=== PATIENT | male | born 1960 | race Two or more races ===

== ENCOUNTER 2017-02-23 09:01 | Day surgery (SDC) | payer OTHER ==
[2017-02-20 14:51] VITALS: BMI 24.6
[~2017-02-23] VITALS: Ht 160 cm; Wt 72.0 kg
[2017-02-23] VITALS (16 sets, daily range): BP systolic 98–144; BP diastolic 60–78; PULSE 67–82; RESP 10–20; Ht 160 cm; Wt 72.0 kg
[~2017-02-23 09:01] MED LIST: CEFAZOLIN 2 GM/50 ML (PMX) 50 ML IVPB SCH
[2017-02-23] MEDS ORDERED: GLIP-95 PO (09:47)
[2017-02-23] MEDS ORDERED: ASPI-664 PO (09:47)
[2017-02-23] MEDS ORDERED: LANT3I SC (09:47)
[2017-02-23] MEDS ORDERED: PROP10TA6 PO (09:48)
[2017-02-23] MEDS ORDERED: MTF1000T PO (09:48)
[2017-02-23 10:26] LABS: ADD SCAN DIFF NO
[2017-02-23 10:29] LABS: ABNORMAL IP MESSAGE 1; HEMATOCRIT 41.7 % (42.0-52.0); HEMOGLOBIN 14.1 g/dl (14.0-18.0); MEAN CORPUSCULAR HEMOGLOBIN 28.7 pg (29.0-33.0); MEAN CORPUSCULAR HGB CONC 33.8 g/dl (32.0-37.0); MEAN CORPUSCULAR VOLUME 84.8 fl (82.0-101.0); MEAN PLATELET VOLUME 9.1 fl (7.4-10.4); PLATELET COUNT 81 10^3/UL (140-415); RED BLOOD COUNT 4.92 10^6/ul (4.70-6.10); RED CELL DISTRIBUTION WIDTH 15.3 % (11.5-14.5)
[2017-02-23 10:36] LABS: WHITE BLOOD COUNT 2.1 10^3/ul (4.8-10.8)
[2017-02-23] MEDS ORDERED: BUPIVACAINE 0.5% (SDV) 30 ML INJ ONE (11:06)
[2017-02-23] MEDS ORDERED: LIDOCAINE 1% (MPF) 30 ML INJ ONE (11:06)
[2017-02-23 11:08] LABS: INR 1.42; PROTIME 17.4 Sec (12.2-14.2); PT RATIO 1.4
[2017-02-23 11:14] LABS: ALBUMIN 3.8 g/dl (3.3-4.9)
[2017-02-23] MEDS ORDERED: PROPOFOL 20 ML ONE (11:14)
[2017-02-23] MEDS ORDERED: METOCLOPRAMIDE 10 MG INJ ONE (11:14)
[2017-02-23] MEDS ORDERED: MIDAZOLAM 1 MG/ML 2 ML INJ ONE (11:14)
[2017-02-23] MEDS ORDERED: KETOROLAC 30 MG INJ ONE (11:16)
[2017-02-23 11:17] LABS: ALBUMIN/GLOBULIN RATIO 0.74; BILIRUBIN,INDIRECT 0.8 mg/dl (0-1.1); BILIRUBIN,TOTAL 0.8 mg/dl (0.2-1.3); TOTAL PROTEIN 8.9 g/dl (6.1-8.1)
[2017-02-23 11:24] LABS: CALCIUM 8.6 mg/dl (8.4-10.2); CREATININE 0.69 mg/dl (0.61-1.24); POTASSIUM 3.7 mmol/L (3.5-5.1)
--- NOTE | 2017-02-23 11:33 | HPN ---
Date/Time of Note Date/Time of Note DATE: 02/23/17 TIME: 11:33 Interval H&P Admission Note Pt. seen H&P reviewed: No system changes DIMAS RAO DPM February 23, 2017 11:33
[2017-02-23] MEDS ORDERED: CEFAZOLIN 1 GM INJ ONE (11:36)
[2017-02-23] MEDS ORDERED: FENTAnyl 50 MCG/ML VIAL ONE (11:37)
[2017-02-23] MEDS ORDERED: DIPHENHYDRAMINE 50 MG INJ IV PRN (12:00)
[2017-02-23] MEDS ORDERED: ONDANSETRON 4 MG INJ IV PRN (12:00)
[2017-02-23] MEDS ORDERED: OXYCODONE/ACETAMINOPHEN (5/325) TAB PO PRN ×2 (12:00)
[2017-02-23] MEDS ORDERED: MEPERIDINE 25 MG INJ IV PRN (12:00)
[2017-02-23] MEDS ORDERED: HYDROmorphONE (0.2 MG/ML) 10ML SYG IV PRN ×3 (12:00)
[2017-02-23] MEDS ORDERED: METOCLOPRAMIDE 10 MG INJ IV PRN (12:00)
[2017-02-23 12:50] LABS: LYMPHOCYTES # 0.8 10^3/ul (0.8-2.9); MONOCYTE # 0.2 10^3/ul (0.3-0.9); NEUTROPHIL # 1.1 10^3/ul (1.6-7.5)
[2017-02-23] MEDS ORDERED: HYDROmorphONE (0.2 MG/ML) 10ML SYG IV ONE (12:50)
[2017-02-23 12:51] LABS: PLATELET ESTIMATE PLT APPEAR DECREASED
[2017-02-23] MEDS ORDERED: HYDROCODONE/APAP (10/325) TAB PO PRN (13:00)
--- NOTE | 2017-02-24 11:59 | RADRPT ---
PROCEDURE: XR Right Foot. CLINICAL INDICATION: Right foot pain. Postop. TECHNIQUE: Three views. Frontal, lateral, and oblique. COMPARISON: None. FINDINGS: There is no fracture or dislocation. The soft tissues are normal. There is a prosthesis of the first metatarsal head which appears satisfactory. Gas is present in th e soft tissues adjacent. The articular surfaces are otherwise intact. There is no lytic lesion. IMPRESSION: 1. Satisfactory postoperative appearance of the right first metatarsal head. 2. No other significant abnormality. RPTAT: QQ .Frankie Lowery MD, MD Date Time Electronically viewed and signed by .Frankie Lowery MD, MD on 02/24/2017 11:59 .R/
== END 2017-02-23 14:40 | disposition home or self-care (01) ==
LOC: SDS 09:01
PROVIDERS: ATTEND Podiatrist Foot & Ankle Surgery
DX: M13.871 Other specified arthritis, right ankle and foot (principal); M20.21 Hallux rigidus, right foot; E11.42 Type 2 diabetes mellitus with diabetic polyneuropathy
CPT/HCPCS: 28289; 73630; 80053; 82962; 85025; 85610; 85730; 88304; 88311; C1776; J0690; J1170; J2250; J2765; J3010; L3260; Z7512; Z7610; J1885

== ENCOUNTER 2017-12-23 08:56 | Day surgery (SDC) | END 2017-12-23 15:28 | disposition home or self-care (01) ==

== ENCOUNTER 2018-06-09 05:59 | Day surgery (SDC) | END 2018-06-09 12:02 | disposition home or self-care (01) ==